=== PATIENT | male | born 1945 | race Caucasian/White ===

== ENCOUNTER 2019-01-05 09:27 | Inpatient (IN) ==
[2019-01-05] MEDS ORDERED: *HR* Rocuronium Bromide 50 MG/5 ML VIAL ONE (09:43)
[2019-01-05] MEDS ORDERED: *HR* Propofol 200 MG/20 ML VIAL IVP ONE (09:43)
[2019-01-05] MEDS ORDERED: Lidocaine -MPF 2% 2 ML VIAL ONE (09:43)
[2019-01-05] MEDS ORDERED: *HR* FentaNYL (PF) 100 MCG/2 ML VIAL ONE (09:43)
[2019-01-05] MEDS ORDERED: Dexamethasone 4 MG/ML VIAL ONE (09:45)
[2019-01-05] MEDS ORDERED: Ondansetron 4 MG/2 ML VIAL ONE (09:45)
[2019-01-05] MEDS ORDERED: CeFAZolin Syr 2,000MG/20 ML 2,000 MG/20 ML SYRINGE IVPB ONE (09:54)
[2019-01-05] MEDS ORDERED: Albuterol 2.5 MG/3 ML NEBULIZER IH PRN (09:54)
[2019-01-05] MEDS ORDERED: Ringers Solution, Lactated 1,000 ML IVC SCH ×2 (10:00→10:15)
[2019-01-05] MEDS ORDERED: Ketorolac 15 MG/ML VIAL IVP ONE (10:15)
[2019-01-05] MEDS ORDERED: Acetaminophen IV 1,000 MG/100 ML INFUS..BTL IVPB ONE (10:15)
[2019-01-05] MEDS ORDERED: *HR* HYDROmorphone (PF) 1 MG/ML SYRINGE IVP PRN (10:15)
[2019-01-05] MEDS ORDERED: *HR* OxyCODONE Immed Rel 5 MG TABLET PO PRN (10:15)
[2019-01-05] MEDS ORDERED: *HR* Promethazine 25 MG/ML VIAL IVP PRN (10:15)
[2019-01-05] MEDS ORDERED: *HR* HYDROMORPHONE 2 MG/ML VIAL ONE (11:57)
[2019-01-05] MEDS ORDERED: *HR* Vasopressin 20 UNIT/ML VIAL ONE (12:26)
[2019-01-05] MEDS ORDERED: Naloxone 0.4 MG/ML INJ IVP PRN (14:49)
[2019-01-05] MEDS ORDERED: *HR* HYDROcodone/Acet 5/325 mg TABLET PO PRN (14:49)
[2019-01-05] MEDS ORDERED: Ondansetron 4 MG/2 ML VIAL IVP PRN (14:49)
[2019-01-05] MEDS: Gabapentin 300 MG CAPSULE PO SCH ×2 (15:47→21:16)
[2019-01-05] MEDS: *HR* Heparin 5,000 UNIT/ML VIAL SQ SCH ×2 (15:47→21:16)
[2019-01-05] MEDS: 0.9 % Sodium Chloride 1,000 ML IVC SCH (15:47)
[2019-01-05] MEDS: Famotidine 20 MG TABLET PO SCH (15:47)
[2019-01-05] MEDS: Ipratropium/Albuterol Neb 3 ML IH SCH ×3 (15:49→23:51)
[2019-01-05] MEDS: Ketorolac 15 MG/ML VIAL IVP SCH ×2 (17:37→23:27)
[2019-01-05] MEDS: Budesonide/Formoterol 160/4.5 1 PUFF INH IH SCH (20:07)
[2019-01-05] MEDS: Sennosides/Docusate Sodium TABLET PO SCH (21:16)
[2019-01-06 01:34] LABS: Hematocrit 36.3 % (37.5-50.1); Hemoglobin 12.4 g/dL (12.9-16.9); Mean Corpuscular HGB Conc 34.2 g/dL (31.6-35.5); Mean Corpuscular Hemoglobin 31.6 pg (28.0-33.3); Mean Corpuscular Volume 92.6 fL (83.0-100.0); Mean Platelet Volume 9.5 fL (9.4-12.4); Platelet Count 164 K/mcL (140-400); Red Blood Count 3.92 M/mcL (4.19-5.50); Red Cell Distribution Width 13.1 % (11.5-14.5); White Blood Count 9.1 K/mcL (4.3-11.1)
[2019-01-06 01:52] LABS: % Iron Saturation 21 % (20-55); BUN/Creatinine Ratio 13 (6-26); Blood Urea Nitrogen 10 mg/dL (8-23); Calcium 8.4 mg/dL (8.6-10.3); Carbon Dioxide 21 mEq/L (23-29); Chloride 98 mEq/L (98-107); Glucose 158 mg/dL (70-105); Iron 69 mcg/dL (65-175); Magnesium 1.3 mg/dL (1.6-2.6); Osmolality,Calculated 266 (280-300); Potassium 4.1 mEq/L (3.5-5.1); Sodium 127 mEq/L (136-145); Transferrin 233 mg/dL (203-362); eGFR For African Americans > 60 (> 60); eGFR For Non-African Americans > 60 (> 60)
[2019-01-06] MEDS: Ipratropium/Albuterol Neb 3 ML IH SCH ×5 (04:18→20:51)
[2019-01-06] MEDS: 0.9 % Sodium Chloride 1,000 ML IVC SCH (04:38)
[2019-01-06] MEDS: Famotidine 20 MG TABLET PO SCH ×2 (06:28→16:40)
[2019-01-06] MEDS: Ketorolac 15 MG/ML VIAL IVP SCH ×3 (06:30→16:40)
[2019-01-06] MEDS: *HR* Heparin 5,000 UNIT/ML VIAL SQ SCH ×3 (06:30→20:40)
[2019-01-06] MEDS: Budesonide/Formoterol 160/4.5 1 PUFF INH IH SCH ×2 (07:31→20:51)
[2019-01-06] MEDS: Gabapentin 300 MG CAPSULE PO SCH ×3 (08:40→20:39)
[2019-01-06] MEDS: Metoprolol XL (24 HR) Succ 50 MG TAB.ER.24H PO SCH (08:40)
[2019-01-06] MEDS: Lisinopril 20 MG TABLET PO SCH (08:40)
[2019-01-06] MEDS: Sennosides/Docusate Sodium TABLET PO SCH ×2 (08:41→20:40)
[2019-01-06] MEDS ORDERED: Tiotropium 18 MCG inhalation IH SCH (10:00)
[2019-01-07] MEDS: Ketorolac 15 MG/ML VIAL IVP SCH ×2 (00:01→06:32)
[2019-01-07] MEDS: Ipratropium/Albuterol Neb 3 ML IH SCH ×3 (00:45→08:05)
[2019-01-07] MEDS: Famotidine 20 MG TABLET PO SCH (06:31)
[2019-01-07] MEDS: *HR* Heparin 5,000 UNIT/ML VIAL SQ SCH (06:32)
[2019-01-07 07:31] LABS: BUN/Creatinine Ratio 19 (6-26); Blood Urea Nitrogen 14 mg/dL (8-23); Calcium 8.3 mg/dL (8.6-10.3); Carbon Dioxide 23 mEq/L (23-29); Chloride 100 mEq/L (98-107); Glucose 118 mg/dL (70-105); Osmolality,Calculated 272 (280-300); Potassium 4.5 mEq/L (3.5-5.1); Sodium 130 mEq/L (136-145); eGFR For African Americans > 60 (> 60); eGFR For Non-African Americans > 60 (> 60)
[2019-01-07 07:47] VITALS: BP 154/88
[2019-01-07] MEDS: Metoprolol XL (24 HR) Succ 50 MG TAB.ER.24H PO SCH (08:00)
[2019-01-07] MEDS: Lisinopril 20 MG TABLET PO SCH (08:00)
[2019-01-07] MEDS: Gabapentin 300 MG CAPSULE PO SCH (08:02)
[2019-01-07] MEDS: Sennosides/Docusate Sodium TABLET PO SCH (08:02)
[2019-01-07] MEDS: Budesonide/Formoterol 160/4.5 1 PUFF INH IH SCH (08:05)
== END 2019-01-07 09:38 | disposition home or self-care (01) | DRG 165 ==
LOC: SAMDAY 09:27 → 2NNU 14:24
PROVIDERS: ADMIT Thoracic Surgery (Cardiothoracic Vascular Surgery); ATTEND Thoracic Surgery (Cardiothoracic Vascular Surgery)